=== PATIENT | male | born 1995 | race African-American/Black ===

== ENCOUNTER 2017-08-27 12:45 | Emergency (ER) | payer OTHER ==
[~2017-08-27] VITALS: Ht 180.3 cm; Wt 80.1 kg
[2017-08-27] MEDS ORDERED: PEN-VEE K,VEET500 MG PO (14:54)
[2017-08-27] MEDS ORDERED: MOTRIN800 MG PO (14:54)
[2017-08-27 15:27] VITALS: BP 132/83
== END 2017-08-27 15:27 | disposition home or self-care (01) ==
LOC: EME 12:45
DX: K08.89 Other specified disorders of teeth and supporting structures (principal)
CPT/HCPCS: 99281; 99283